=== PATIENT | male | born 1970 | race Caucasian/White ===

== ENCOUNTER 2018-04-19 11:12 | Emergency (ER) | payer OTHER ==
[2018-04-19] MEDS ORDERED: PROPARACAINE 0.5% OPHTH DROPS 15 ML RIGHTEYE STA (12:03)
--- NOTE | 2018-04-19 12:29 | ED Physician Documentation ---
PD HPI OPHTHO - Stated complaint Stated Complaint: EYE IRRIATION - Chief complaint Chief Complaint: Heent - History obtained from History obtained from: Patient - History of Present Illness Timing - onset: Today Timing - duration: Days (2) Timing - details: Abrupt onset, Still present Location: Right Quality / character: Throbbing, Sharp Associated symptoms: Redness, Tearing, FB sensation Contributing factors: FB Similar symptoms before: Diagnosis (blunt trauma to the eye.) Recently seen: Not recently seen - Additional information Additional information: 37-year-old male was working out in his yard 3 days ago and he thought that he got something into his eye and he was able to rinse his eye out he continued to have some funny feeling in his eye and overnight developed redness and stinging in his eye. This is persisted and he is having especially bedtime when he wakes up in the morning and opens his eye. He has not been able to find anything in his eye and he has not had any change in his vision. He said something similar to this happen when he had blunt trauma to the eye on the other side. Review of Systems Constitutional: denies: Fever Eyes: reports: Irritation. denies: Loss of vision, Decreased vision, Photophobia, Discharge Ears: denies: Ear pain Nose: denies: Rhinorrhea / runny nose, Congestion Throat: denies: Sore throat Respiratory: denies: Cough GI: denies: Vomiting PD PAST MEDICAL HISTORY - Past Medical History Past Medical History: Yes Psych: Anxiety - Past Surgical History Past Surgical History: Yes Ortho: Other - Present Medications Home Medications: Ambulatory Orders Medication Instructions Recorded Confirmed Escitalopram [Lexapro] 10 mg PO DAILY 04/19/18 04/19/18 Neomycin/Poly/Dex Ophth Drops 1 drops RIGHTEYE QID #1 bottle 04/19/18 [Maxitrol Ophth Drops] - Allergies Allergies/Adverse Reactions: Allergies Allergy/AdvReac Type Severity Reaction Status Date / Time No Known Drug Allergies Allergy Verified 04/19/18 11:27 - Social History Does the pt smoke?: Yes Smoking Status: Current every day smoker Does the pt drink ETOH?: No Does the pt have substance abuse?: No - Immunizations Immunizations are current?: Yes PD ED PE NORMAL - Vitals Vital signs reviewed: Yes (hypertensive ) - General General: Alert and oriented X 3, No acute distress, Well developed/nourished - HEENT HEENT: Atraumatic, PERRL, EOMI, Other (The right eye is without distortion, hyphema or obvious FB. The lid is everted and no FB there as well. There is mild injection to the sclera and only a small area of fluroscien uptake in the lateral cornea. ) - Neck Neck: Supple, no meningeal sign, No bony TTP - Respiratory Respiratory: No respiratory distress - Derm Derm: Normal color, Warm and dry, No rash - Extremities Extremities: No deformity, No edema - Neuro Neuro: No motor deficit, No sensory deficit Eye Opening: Spontaneous Motor: Obeys Commands Verbal: Oriented GCS Score: 15 - Psych Psych: Normal mood, Normal affect Results - Vitals Vitals: Vital Signs - 24 hr 04/19/18 04/19/18 11:25 13:15 Temperature 36.6 C 36.3 C L Heart Rate 74 67 Respiratory 16 16 Rate Blood Pressure 148/81 H 125/80 O2 Saturation 99 99 Oxygen O2 Source Room air PD MEDICAL DECISION MAKING - ED course Complexity details: considered differential, d/w patient, d/w family ED course: 47-year-old male with a foreign body sensation in the eye and persistent irritation to the eye after working in his yard. He has minimal fluorescein uptake he has relief of his pain with the use of the proparacaine and is diagnosed with a corneal abrasion. We will place him onto some Maxitrol drops and he will follow-up with ophthalmology if required. - Sepsis Event Vital Signs: Vital Signs - 24 hr 04/19/18 04/19/18 11:25 13:15 Temperature 36.6 C 36.3 C L Heart Rate 74 67 Respiratory 16 16 Rate Blood Pressure 148/81 H 125/80 O2 Saturation 99 99 Oxygen O2 Source Room air Departure - Departure Disposition: 01 Home, Self Care Clinical Impression: Corneal abrasion Qualifiers: Encounter type: initial encounter Laterality: right Qualified Code(s): S05.01XA - Injury of conjunctiva and corneal abrasion without foreign body, right eye, initial encounter Condition: Stable Instructions: ED Eye Injury Corneal Abrasion Follow-Up: Luke Payan MD [Primary Care Provider] - Los Chatman MD [Provider Admit Priv/Credential] - Prescriptions: Neomycin/Poly/Dex Ophth Drops [Maxitrol Ophth Drops] 1 drops RIGHTEYE QID #1 bottle Forms: Activity restrictions Discharge Date/Time: 04/19/18 13:28
[2018-04-19 13:16] VITALS: BP 125/80
== END 2018-04-19 13:28 | disposition home or self-care (01) ==
LOC: ED 11:12
DX: S05.01XA Injury of conjunctiva and corneal abrasion without foreign body, right eye, initial encounter (principal); W22.8XXA Striking against or struck by other objects, initial encounter; Y93.H2 Activity, gardening and landscaping; Y92.096 Garden or yard of other non-institutional residence as the place of occurrence of the external cause; F17.200 Nicotine dependence, unspecified, uncomplicated
CPT/HCPCS: 99283; J3490